=== PATIENT | female | born 2000 | race Hispanic/Latino ===

== ENCOUNTER 2021-03-03 05:49 | Emergency (ER) | payer MEDICAID | END 2021-03-03 06:41 | disposition home or self-care (01) | LOC: EDH 05:49 | DX: O26.893 Other specified pregnancy related conditions, third trimester (principal); J03.90 Acute tonsillitis, unspecified; H61.21 Impacted cerumen, right ear; Z79.899 Other long term (current) drug therapy; Z3A.33 33 weeks gestation of pregnancy | CPT/HCPCS: 99281 ==